=== PATIENT | male | born 1960 | race Two or more races ===

== ENCOUNTER 2021-06-17 06:10 | Day surgery (SDC) | payer OTHER | END 2021-06-17 12:05 | disposition home or self-care (01) | LOC: CIR.AMB 06:10 | PROVIDERS: ATTEND Orthopaedic Surgery | DX: M75.122 Complete rotator cuff tear or rupture of left shoulder, not specified as traumatic (principal); M75.22 Bicipital tendinitis, left shoulder; M24.112 Other articular cartilage disorders, left shoulder; Z87.442 Personal history of urinary calculi; Z20.822 Contact with and (suspected) exposure to COVID-19 ==